=== PATIENT | male | born 1990 ===

== ENCOUNTER 2020-07-19 11:24 | Emergency (ER) | payer OTHER ==
[~2020-07-19] VITALS: Ht 165.1 cm; Wt 79.4 kg
[2020-07-19] MEDS ORDERED: IVERMECTIN3 MG PO (13:37)
[2020-07-19] MEDS ORDERED: PROAIR RESPICL90 MCG IH (13:37)
[2020-07-19] MEDS ORDERED: ACETAMINOPHEN500 M2 (13:39)
== END 2020-07-19 13:45 | disposition home or self-care (01) ==
LOC: ER 11:24
DX: U07.1 COVID-19 (principal)

== ENCOUNTER 2020-11-30 00:25 | Emergency (ER) | payer OTHER ==
[~2020-11-30] VITALS: Ht 165.1 cm; Wt 80.7 kg
[~2020-11-30 00:25] MED LIST: ACETAMINOPHEN500 M2; IVERMECTIN3 MG PO; PROAIR RESPICL90 MCG IH
[2020-11-30] MEDS ORDERED: CEPHALEXIN500 MG PO (04:26)
[2020-11-30] MEDS ORDERED: KETO10TA2 PO (04:26)
== END 2020-11-30 04:36 ==
LOC: ER 00:25
DX: N50.89 Other specified disorders of the male genital organs (principal)

== ENCOUNTER 2021-08-25 22:00 | Emergency (ER) | payer OTHER ==
[~2021-08-25] VITALS: Ht 165.1 cm; Wt 81.2 kg
[~2021-08-25 22:00] MED LIST changes: +CEPHALEXIN500 MG PO; +KETO10TA2 PO
== END 2021-08-26 | disposition home or self-care (01) ==
LOC: ER 22:00
DX: K64.9 Unspecified hemorrhoids (principal)

== ENCOUNTER 2021-09-01 00:54 | Emergency (ER) | payer OTHER ==
[~2021-09-01] VITALS: Ht 165.1 cm; Wt 81.2 kg
[2021-09-01] MEDS ORDERED: ZYRTEC10 M3 PO (05:16)
[2021-09-01] MEDS ORDERED: MUCINEX DM ER1 EACH PO (05:16)
[2021-09-01] MEDS ORDERED: ACETAMINOPHEN650 M2 PO (05:16)
== END 2021-09-01 05:25 | disposition home or self-care (01) ==
LOC: ER 00:54
DX: B34.9 Viral infection, unspecified (principal); Z20.822 Contact with and (suspected) exposure to COVID-19

== ENCOUNTER 2021-10-27 15:24 | Emergency (ER) | payer OTHER ==
[~2021-10-27] VITALS: Ht 165.1 cm; Wt 81.6 kg
[~2021-10-27 15:24] MED LIST changes: +ACETAMINOPHEN650 M2 PO; +MUCINEX DM ER1 EACH PO; +ZYRTEC10 M3 PO
== END 2021-10-27 19:45 | disposition home or self-care (01) ==
LOC: ER 15:24
DX: J09.X2 Influenza due to identified novel influenza A virus with other respiratory manifestations (principal); Z20.822 Contact with and (suspected) exposure to COVID-19